=== PATIENT | female | born 1965 ===

== ENCOUNTER → 2016-11-30 | Outpatient (REF) | payer BC ==
[2016-11-30 18:15] LABS: BASO % 0.4 % (0.0-1.0); EOS # 0.1 K/mm3 (0.0-0.50); EOS % 0.6 % (0.0-3.0); LARGE UNSTAINED CELL # 0.1 K/mm3 (0.0-0.4); LYMPH # 1.9 K/mm3 (1.5-4.5); LYMPH % 16.5 % (24.0-44.0); MEAN CORPUSCULAR HEMOGLOBIN 26.1 pg (27.0-33.0); MEAN CORPUSCULAR HGB CONC 31.1 g/dl (32.0-36.5); MEAN CORPUSCULAR VOLUME 83.8 fl (80.0-96.0); MONO # 0.6 K/mm3 (0.0-0.8); MONO % 5.5 % (0.0-5.0); NEUTROPHILS # 8.1 K/mm3 (1.8-7.7); NEUTROPHILS % 75.9 % (36.0-66.0); PLATELET COUNT, AUTOMATED 237 k/mm3 (150-450); RED CELL DISTRIBUTION WIDTH 13.8 % (11.5-14.5); WHITE BLOOD COUNT 10.6 K/mm3 (4.0-10.0)
[2016-11-30 19:28] LABS: ERYTHROCYTE SEDIMENTATION RATE 19 mm/hr (0-20)
[2016-11-30 19:54] LABS: GAMMA GLUTAMYLTRANSPEPTIDASE 28 U/L (5-55)
[2016-12-02 12:13] LABS: ALBUMIN 3.77 GM/DL (3.29-5.55); ALBUMIN % 53.9 % (55.8-66.1); GAMMA GLOBULIN % 14.6 % (11.1-18.8)
== END ==
LOC: M LABDRAW1 17:03
PROVIDERS: ATTEND Internal Medicine Rheumatology
DX: M35.9 Systemic involvement of connective tissue, unspecified (principal); D47.2 Monoclonal gammopathy; R74.8 Abnormal levels of other serum enzymes; Z79.899 Other long term (current) drug therapy